=== PATIENT | male | born 1965 | race Caucasian/White ===

== ENCOUNTER → 2016-09-15 | Day surgery (SDC) | payer BC ==
[~2016-09-15] MED LIST: ASPIRIN81 MG PO; ATORVASTATIN CA10 MG PO; HYDROCHLOROTHIA25 MG DOB; LOSARTAN POTASS50 MG PO
--- NOTE | ~2016-09-15 | OR ---
Unit #: [id number] #: [id number] Patient: JARRELL WARE [id number] [facility] [address] [facility]. [place], [place] [address] [id number] O MR#: [id number] NAME: JARRELL WARE. ROOM: Date of Procedure: 09/15/2016 Admission Date: 09/15/2016 Surgeon: Manuel Valdez M.D. : 1965 Attending Physician: Manuel Valdez M.D. Primary Care Physician: Rashi Carr M.D. OPERATIVE REPORT PRIMARY CARE PHYSICIAN Rashi Carr M.D. PREOPERATIVE DIAGNOSIS Screening colonoscopy. POSTOPERATIVE DIAGNOSES 1. Scattered diverticula in the colon. 2. 8 mm polyp at 20 cm from the anal verge. PROCEDURES PERFORMED Colonoscopy to cecum with snare polypectomy x1. ANESTHESIA Monitored anesthesia. INDICATIONS FOR PROCEDURE A 51-year-old gentleman with no family history is sent for his initial screening colonoscopy. DESCRIPTION OF PROCEDURE The patient was admitted to [facility] positively identified, and transported to the endoscopy unit. After appropriate monitoring and positioning, he was sedated by the nurse photo lab specialist. On rectal examination, there was no local anorectal pathology, and prostate was normal to digital examination. Colonoscope was passed through the anal verge throughout the extent of the colon to the cecum where the appendiceal orifice and ileocecal valve were photo-documented. On careful antegrade and retrograde visualization, he was noted to have a few scattered diverticula throughout the colon, but there was no segmental area of significant diverticulosis. At 20 cm from the anal verge, he had an 8 mm polyp that was completely excised using a snare polypectomy forceps. There was excellent hemostasis. The polyp was recovered and sent to the laboratory. In the rectal vault, there was no internal hemorrhoidal disease. The patient tolerated the procedure well and was transported to recovery in stable condition. Findings were discussed with his . When the pathological evaluation of the polyps is returned, we will call the patient with the results and recommend followup at that time. In the interim, it was recommended that he take a high-fiber diet to prevent any symptomatic diverticular disease. Unit #: [id number] #: [id number] Patient: JARRELL WARE Dictated by... Katarzyna Palacios/marilin TD: 09/16/2016 03:24 JOB #: [id number] CC: . OPERATIVE REPORT Page 1 of 1 X Manuel Valdez MD PROCEDURE OPERATIVE NOTE
--- NOTE | ~2016-09-15 | HP ---
Unit #: [id number] #: [id number] Patient: JARRELL WARE [id number] [address] [place], [place] [address] [id number] O MR#: [id number] NAME: JARRELL WARE. ROOM: Age: 51 Sex: M Admission Date: 09/15/2016 : 1965 Attending Physician: Manuel Valdez M.D. Primary Care Physician: Rashi Carr M.D. HISTORY AND PHYSICAL HISTORY OF PRESENT ILLNESS Mr. Ware is a 51-year-old gentleman sent for his initial screening colonoscopy. He is otherwise asymptomatic and has no family history of colorectal disease. PAST MEDICAL HISTORY Hypertension. SOCIAL HISTORY , two children, social alcohol drinker, denies the use of tobacco. He works in [employer] FAMILY HISTORY Father of a heart attack. Mother of lung cancer. ALLERGIES Penicillin. MEDICATIONS 1. Losartan. 2. Hydrochlorothiazide. 3. Atorvastatin. IMMUNIZATIONS He has not had a recent flu or pneumonia vaccine. REVIEW OF SYSTEMS Otherwise unremarkable. PHYSICAL EXAMINATION GENERAL APPEARANCE: Awake, alert and oriented. VITAL SIGNS: Height 5'6". Weight 175 lb. Vital signs are within normal limits. HEENT: Unremarkable. CARDIAC: Regular rate and rhythm. LUNGS: Clear. ABDOMEN: Soft. EXTREMITIES: No edema. NEUROLOGIC: Grossly intact. ASSESSMENT AND PLAN A 51-year-old gentleman sent for initial screening colonoscopy. I discussed the procedure including risks, benefits, complication, bowel prep. He understands and agrees to proceed. Unit #: [id number] #: [id number] Patient: JARRELL WARE Dictated by Katarzyna Palacios/kaushik TD: 09/15/2016 08:10 JOB #: [id number] HISTORY AND PHYSICAL Page 1 of 1 X Manuel Valdez MD HISTORY AND PHYSICAL
== END | disposition home or self-care (01) ==
LOC: COPS 05:43
DX: Z12.11 Encounter for screening for malignant neoplasm of colon (principal); K63.5 Polyp of colon; K57.30 Diverticulosis of large intestine without perforation or abscess without bleeding; I10 Essential (primary) hypertension; E78.5 Hyperlipidemia, unspecified; K21.9 Gastro-esophageal reflux disease without esophagitis; Z88.0 Allergy status to penicillin; Z79.82 Long term (current) use of aspirin; Z79.899 Other long term (current) drug therapy
CPT/HCPCS: 88305; J2250